=== PATIENT | female | born 1985 | race Caucasian/White ===

== ENCOUNTER 2016-10-11 08:59 | Emergency (ER) | payer OTHER ==
--- NOTE | ~2016-10-11 | CR282 ---
[facility] A Service of [facility] & [facility] [place] RADIOLOGY TEXT RESULTS PATIENT: AMAYA MIKE LOCATION: [facility] : [birth year] UNIT #: [id number] AGE: [address]: Edith Linares APRN SEX: F ORDER DR: [id number] [facility] [address] [place] [address] [place], [place] [address] [id number] E MR#: [id number] Acc #: [id number] NAME: AMAYA MIKE : 1985 SEX: F STUDY DATE/TIME: 10/11/2016 8:31 UNIT: [facility] ROOM: STUDY DESCRIPTION: CR Wrist Min 3 View Rt Attending Physician: Edith Linares A.P.R.N. Ordering Physician: [facility] Primary Care Physician: Demarcus Rodriguez M.D. MEDICAL IMAGING REPORT This report is preliminary unless electronic signature is present EXAM Right wrist, 3 views, 10/11/2016 HISTORY Pain after punching a wall yesterday. FINDINGS Normal. Dictated by... Joel Watts M.D. THIS IS AN ELECTRONICALLY VERIFIED REPORT Joel Watts M.D. at 10/15/2016 7:06 PM TEV/pcl TD: 10/11/2016 14:11 JOB #: [id number] MEDICAL IMAGING REPORT COPY
--- NOTE | ~2016-10-11 | CR142 ---
[facility] A Service of [facility] & [facility] RADIOLOGY TEXT RESULTS PATIENT: AMAYA MIKE LOCATION: [facility] : 87 UNIT #: [id number] AGE: [address]: Edith Linares APRN SEX: F ORDER DR: [id number] [facility] [address] [place], [place] [address] [id number] E MR#: [id number] Acc #: [id number] NAME: AMAYA MIKE : 1985 SEX: F STUDY DATE/TIME: 10/11/2016 8:30 UNIT: [facility] ROOM: STUDY DESCRIPTION: CR Hand Min 3 Views Rt Attending Physician: Edith Linares A.P.R.N. Ordering Physician: Ed Doctor [id number] [facility] Primary Care Physician: Demarcus Rodriguez M.D. MEDICAL IMAGING REPORT This report is preliminary unless electronic signature is present EXAM Right hand 3 views 10/11/2016 COMPARISON None. HISTORY Medial side right hand pain after punching wall last night. FINDINGS AP, lateral, and oblique projections of the hand show good mineralization with normal carpal, metacarpal, and phalangeal anatomy without indication of fracture, dislocation, or soft tissue radiopaque foreign body. IMPRESSION Normal right hand. Dictated by... Joel Watts M.D. THIS IS AN ELECTRONICALLY VERIFIED REPORT Joel Watts M.D. at 10/15/2016 7:06 PM TEV/alexandra TD: 10/11/2016 14:12 JOB #: [id number] MEDICAL IMAGING REPORT COPY
[~2016-10-11 08:59] MED LIST: ANSAID100 MG PO; CIPRO PO; FLEXERIL10 MG PO; HYDROCODON-ACE1 EAC1 PO; LORTAB 5/500 TA1 TA1 PO; LORTAB 7.51 TAB 7.5/ PO; MACROBID100 M1 PO; ORUDIS75 M1; TRAMADOL HCL50 M2 PO; ZANAFLEX2 MG
== END 2016-10-11 09:23 | disposition home or self-care (01) ==
LOC: CED 08:59
DX: S60.211A Contusion of right wrist, initial encounter (principal); W22.01XA Walked into wall, initial encounter; Y92.009 Unspecified place in unspecified non-institutional (private) residence as the place of occurrence of the external cause
CPT/HCPCS: 29125; 73110; 73130; 99284